=== PATIENT | female | born 1950 | race Caucasian/White ===

== ENCOUNTER → 2020-10-31 13:06 | Outpatient (CLI) | payer OTHER, SELFPAY ==
[2020-10-31 14:51] LABS: COVID19 -Nasal RAPID Negative (Negative)
== END ==
PROVIDERS: PCP Family Medicine; Visit Provider Nurse Practitioner
DX: Z20.822 Contact with and (suspected) exposure to COVID-19 (principal)
CPT/HCPCS: 87635

== ENCOUNTER 2020-11-02 10:38 | Inpatient (IN) | payer OTHER, SELFPAY ==
[2020-10-27 13:38] VITALS: BMI 36.8
[2020-11-02] VITALS (23 sets, daily range): BP systolic 122–157; BP diastolic 48–104; PULSE 58–80; RESP 8–19; TEMP 35.9–36.6; O2SAT 91–100; BMI 36.8
--- NOTE | 2020-11-02 06:00 | DI.RAD.S_ITS ---
PROCEDURE: XR SHOULDER RT MIN 2V INDICATIONS: post op TSA, right shoulder TECHNIQUE: Single frontal views of the shoulder were acquired. COMPARISON: [facility], XR SHOULDER MIN 2VW RT, 11/10/2015, 7:39. [facility], XR SHOULDER MIN 2VW RT, 07/27/2015, 10:30. FINDINGS: Bones: No fractures or dislocations. No suspicious bony lesions. Visualized ribs appear intact. Expected postoperative alignment after right total shoulder arthroplasty. Soft tissues: No suspicious soft tissue calcifications. IMPRESSION: Normal alignment after right total shoulder arthroplasty. Dictated by: Maxwell Bal M.D. on 11/02/2020 at 16:44 Approved by: Maxwell Bal M.D. on 11/02/2020 at 16:44
[2020-11-02] MEDS: ACETAMINOPHEN 325 MG TABLET 975 MG PO (11:19)
[2020-11-02] MEDS: CELECOXIB 200 MG CAPSULE PO (11:19)
[2020-11-02] MEDS: PREGABALIN 75 MG CAPSULE PO (11:19)
[2020-11-02] MEDS: LACTATED RINGERS 1,000 ML 42 ML IV ×2 (11:41→15:33)
--- NOTE | 2020-11-02 12:11 | PM.PREOP ---
Pre-operative Note COVID-19 COVID-19 status: Negative Result date/Date tested (Pos, Neg/Pending): 10/31/20 Interval Note History & Physical reviewed/Exam performed by Physician: Yes Changes to H&P: No
[2020-11-02] MEDS: CEFAZOLIN 2 GM/100 ML FROZ.PIGGY IV (13:20)
[2020-11-02] MEDS: TRANEXAMIC ACID 1,000 MG VIAL 2000 MG INJ ×2 (13:26→14:47)
--- NOTE | 2020-11-02 13:41 | SUR.OPER ---
Beach chair with Nik/Sparkle shoulder positioner. Lower body on padded OR bed. Head in foam padded head cradle, secured with straps. Non-operative arm secured <90 degrees abduction. Pillow under knees. Safety belt at thigh. Cloth tape over blanket over lower legs.
[2020-11-02] MEDS: BUPIVACAINE 0.25% W/ EPI (PF) 10 ML VIAL 20 ML INJ (13:56)
--- NOTE | 2020-11-02 15:21 | PM.OP.1 ---
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 She has had ongoing pain despite an arthroscopic procedure done at the [facility]. After extensive discussion the risks benefits and alternative she has agreed to reverse total shoulder replacement. Risks discussed included but were not limited to: Failure to improve, stiffness, infection, nerve damage, deep venous thrombosis, pulmonary embolism, stroke, myocardial infarction, permanent paralysis and . Surgeon: [facility] Operator: Dea Moser Click Yes if Unassisted: No Anesthesia Type: General, Peripheral nerve block and Local Operative Notes Findings: Severe collapse of the humeral head with excessive retroversion compared to the shaft. Closure Type: primary Specimen(s): none sent Prosthetic devices, grafts, tissues, transplants, or devices: Implants used in this procedure were manufactured by the [employer] and included a [employer] total shoulder system with a 24 mm modular base plate with a 30 mm central screw there were 4 peripheral locking screws measuring 5.5 mm diameter and 16, 16, 24 and 32 mm in length. The glenosphere was a 33/24 with a central locking screw. On the humeral side there was a size 5 135 degree stem with a 36+ 2 right suture cup and a 36 +6/33 humeral insert. Applied: implant(s) Estimated Blood Loss (mL): 200 Blood products transfused: none Procedure in detail: The patient was seen in the preoperative area where they identified the right shoulder as the operative site and this was marked with my initials. They received preoperative antibiotics and underwent the induction of an interscalene block. They were taken to the operating room and placed on the operating room table in a supine position with the underwent the induction of a general anesthetic. There were then repositioned in the ?beach chair? position using a dedicated positioner. All pressure points were well padded. The knees were slightly bent to prevent tension on the sciatic nerves. The right arm was prepared from the fingertips to the base of the neck with ChloraPrep in the usual fashion and draped through sterile drapes. An approximately 15 cm incision was created starting at the clavicle just above the coracoid and going to the deltoid insertion. The deltopectoral interval was used to access the shoulder taking the vein to the medial side. The vein was protected throughout the case, however was found to have been transected at the conclusion of the case. The upper 1 cm of the pectoralis major was released. The biceps tendon was absent. The subscapularis was released. It was quite tight and repair was not possible at the conclusion of the procedure. The shoulder was dislocated and a proximal humeral osteotomy performed using an intramedullary guide. A proximal humeral protector was then placed. Retractors were placed access the glenoid. The soft tissues were removed circumferentially around the glenoid with care being taken to protect the axillary nerve during this procedure. The guide was used to drill the guide hole in the center of the inferior glenoid. The Reamer was then used followed by the central drill for enlarging the hole. A 30 mm tap was used. The base plate was then screwed into position with excellent compression. The locking screws were placed peripherally. The peripheral Reamer was used and the final glenosphere applied. Stability of the glenosphere was confirmed prior to placement of the locking screw. The proximal humeral protector was removed. Cylindrical reamers were used to define the axis of the canal. Broaching was then performed beginning with a size 5 broach. This had a very tight fit and therefore we elected to implant a size 5 stem. The guide for the proximal metaphyseal reamer was then applied and the metaphysis was reamed appropriately. The trial metaphyseal portion of the body was then applied to the broach. Trial reductions were performed and the size of the cup was optimized. Stability was checked in maximal internal and external rotation and range of motion was checked to allow access to the top of the head, internal rotation to an excess of 50? in the ?scarecrow position? and the ability to reach the groin. The appropriate final prosthetic components were then opened. The humeral prosthetic was then impacted into position. The humeral cup was placed. The joint was relocated and irrigated. The axillary nerve wounds once again palpated and found to be intact. The deltopectoral interval was reapproximated with 0 Vicryl. Subcutaneous layer was closed with interrupted 3-0 Vicryl and skin with a running 3 0 V lock suture. Subcutaneous tissues were then infiltrated with 0.5% Marcaine for postoperative pain control. An Aquacel Ag dressing was applied and the patient's arm was placed in a sling. The patient was then transferred to the recovery room in good condition having tolerated the procedure well. Complications: none Post-operative Condition: stable Disposition: PACU Plan for aftercare: The patient will be allowed to do pendulum exercises and use her hand in front of her torso below shoulder level. She will be discharged likely tomorrow when pain control is satisfactory.
[2020-11-02] MEDS: fentaNYL 100 MCG/2 ML INJ IV ×4 (15:29→16:08)
[2020-11-02] MEDS: HYDROMORPHONE 2 MG INJ IV ×5 (15:30→16:09)
[2020-11-02] MEDS: OXYCODONE IR 5 MG TABLET PO ×3 (16:16→23:18)
[2020-11-02] MEDS: LACTATED RINGERS 1,000 ML 100 ML IV (17:55)
[2020-11-02] MEDS: ACETAMINOPHEN 325 MG TABLET 650 MG PO (22:01)
[2020-11-02] MEDS: PRAVASTATIN 20 MG TABLET 40 MG PO (22:02)
[2020-11-02] MEDS: ASPIRIN EC 81 MG TABLET PO (22:02)
[2020-11-02] MEDS: DOCUSATE 100 MG CAPSULE PO (22:02)
[2020-11-02] MEDS: hydrOXYzine pamoate 25 MG CAPSULE PO (23:18)
--- NOTE | 2020-11-02 23:50 | PC.NURSE ---
shift note- Pt arrived to room @ 1700 from PACU via bed. right shoulder aquacell CDI, ice pack to area. A/O x4, 97% 2L nc, PACU reported pt desated to upper 70's. 1999- Pt 94%to 97% RA. Up to BSC x3 for 300-400ml clear yellow urine. L wrist LR @ 100 running. Oxy 5mg Q-3hr for pain trending 4/10. Pt reports no numbness to right fingers or hand, radial p + wiggle hand and fingers and crocheting. Call light in reach.
[2020-11-03] VITALS: BP 148/102; PULSE 83; RESP 19; TEMP 36.2; O2SAT 91
[2020-11-03] MEDS: HYDROMORPHONE 0.5 MG INJ 0.2 MG IV (00:09)
[2020-11-03 00:14] VITALS: BP 144/86
--- NOTE | 2020-11-03 00:43 | PC.NURSE ---
patient seen and assessed at 2349. Is alert and oriented. Breath sounds CTA with RA sat of 91%. HRR with initial BP of 148/102 with recheck of 144/86. Denies nausea. BT hypoactive and abdomen is soft; denies flatus as yet. Was up at shift change to [facility] with 1 assist and voided 100cc; denies dysuria, frequency or urgency. Able to move self in bed but is limited due to right UE being in sling. Aquacel dressing to right shoulder is CDI. CMS is intact. Complained of 4/10 pain so was medicated with Oxycodone + Vistaril after which pain increased to 6/10 so then medicated with Dilaudid and is now asleep. Ice pack also applied to right shoulder. Wearing bilateral calf SCD's. Fall risk score is low.
[2020-11-03 04:00] VITALS: BP 145/69; PULSE 80; RESP 19; TEMP 36.4; O2SAT 92
[2020-11-03] MEDS: OXYCODONE IR 5 MG TABLET PO (04:09)
[2020-11-03] MEDS: LACTATED RINGERS 1,000 ML 100 ML IV (04:55)
[2020-11-03 06:03] LABS: Hematocrit 39.9 % (36-46)
[2020-11-03] MEDS: DOCUSATE 100 MG CAPSULE PO (07:45)
[2020-11-03] MEDS: ACETAMINOPHEN 325 MG TABLET 650 MG PO (07:45)
[2020-11-03] MEDS: ASPIRIN EC 81 MG TABLET PO (07:45)
[2020-11-03] MEDS: OXYCODONE IR 10 MG TABLET PO (07:46)
[2020-11-03] MEDS: LEVOTHYROXINE 125 MCG TABLET PO (07:46)
--- NOTE | 2020-11-03 07:54 | PM.DS.1 ---
History of Present Illness History of Present Illness Date Patient Seen: 11/03/20 Time Patient Seen: 07:54 Chief complaint: Right Total Shoulder Arthroplasty - Reverse Narrative: The history and physical is contained in the chart in a previously completed note. Please refer to that note for this information. Discharge Providers Provider Date of admission: 11/02/20 10:38 Discharge Date: 11/03/20 Primary care physician: Dileep Swanson MD Consults: 11/02/20 17:34 Consult to Discharge Planning Routine Comment: Consult to Physical Therapy Evaluate & Treat Comment: Physician Instructions: pendulums, can use hand in front of torso Discharge provider: Chano Marin MD Summary Hospital Course Discharge Diagnosis: 1. Right proximal humeral fracture malunion with avascular necrosis of the humeral head Hospital Course: Patient was admitted to the hospital and taken directly to the operating room on November 02, 2020 where she underwent a right reverse total shoulder arthroplasty without complications. On postoperative day 1 she was happy with her pain control and was anxious to go home. Status at Discharge Cognitive/behavioral status at discharge: oriented Functional status at discharge: independent ambulation Overall status at discharge: patient is progressing back to baseline Time Spent with Patient Time spent: Less than 30 minutes Exam Vital Signs (past 8 hours): - 11/03/20 00:00 11/03/20 00:14 11/03/20 04:00 Temperature 97.2 F L 97.5 F L Pulse Rate 83 80 Respiratory Rate 19 19 Blood Pressure 148/102 H 144/86 H 145/69 H Pulse Oximetry 91 92 Oxygen Delivery Method Room Air Oxygen Flow Rate 0 Narrative Exam Narrative: Right shoulder wound is dressed with no drainage on the bandage. Light touch is intact in the radial, ulnar, median, musculocutaneous and axillary nerve distributions. She can extend her thumb, abduct her thumb, abduct her fingers and can fire her biceps and deltoid. Objective Labs Result Diagrams: 11/03/20 05:28 Labs: Laboratory Results - last 24 hr 11/03/20 05:28 Hgb 13.0 Hct 39.9 PFSH Medical History (Updated 10/27/20 @ 14:17 by Connie Domingo RN) Fracture of right heel HLD (hyperlipidemia) Hypothyroid Osteoarthritis Right humeral fracture (2014) Surgical History (Updated 10/27/20 @ 14:17 by Connie Domingo RN) History of colon resection (~2005) History of hysterectomy Hx of appendectomy Hx of arthroscopy of shoulder Hx of neck surgery Social History household members: spouse Smoking Status: Former smoker alcohol intake: current Discharge Assessment & Plan Assessment and Plan Assessment: Stable postoperative day 1 status post reverse total shoulder replacement for proximal humeral malunion with AVN. Plan of Treatment: Discharge to home. Follow up at my office in 10-14 days. Discharge prescriptions for oxycodone have been sent to the pharmacy. She has been instructed on the use of aspirin for DVT prophylaxis in the use of Tylenol for additional pain control. Discharge Plan Discharge Plan Patient Disposition: Home Discharge orders & Medications Prescriptions: New aspirin 81 mg Tablet,Delayed Release (Dr/Ec) 81 mg PO BID 42 Days Qty: 84 RF: 0 oxycodone 5 mg Tablet 5 mg PO Q4H PRN (Reason: Pain, Moderate (4-6)) Qty: 40 RF: 0 Continued levothyroxine 125 mcg Tablet 125 mcg PO DAILY RF: 0 naproxen sodium [Aleve] 220 mg Capsule 440 mg PO DAILY PRN (Reason: Pain) RF: 0 pravastatin 40 mg Tablet 40 mg PO BEDTIME RF: 0 acetaminophen 500 mg Tablet 500 mg PO Q6H PRN (Reason: Pain (Scale Score 1-3)) RF: 0 Discontinued tramadol 50 mg Tablet 100 mg PO DAILY PRN (Reason: Pain) RF: 0 Follow up/Referrals: Chano Marin MD [Physician] - 2 Weeks Dileep Swanson MD [Primary Care Provider] - Discharge Health Status Multidrug resistant organism: No MDRO Diet/Activity/Treatments Diet: Diet as Tolerated and Regular Activity: You may use your right hand in front of your torso below shoulder level. Cold/Heat Therapy: You may apply ice to your right shoulder for 15 minutes every hour as needed for pain control. Skin/Wound/Dressing Care Report to your healthcare provider any signs of infection, such as:: chills, fever, night sweats, increased pain, unusual drainage and unusual redness Dressing: Leave the dressing intact until your postoperative follow-up. You may shower with your dressing in place. If the central strip of the dressing becomes saturated with either water or blood, please call the office to have it evaluated. Visit Report/Discharge Packet Instructions: DI for Prescription Opioid Use, DI for Shoulder Replacement Stand Alone Forms: Surgery Discharge Discharge Data Primary Care Provider: Dileep Swanson
[2020-11-03 08:00] VITALS: BP 130/72; PULSE 70; RESP 17; TEMP 36.8; O2SAT 92
--- NOTE | 2020-11-03 09:20 | PT.IIE ---
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) Unspecified fracture of upper end of right humerus, subsequent encounter for fracture with malunion (11/02/20) Surgery Performed Operation Date: 11/02/20 12:45 Actual Procedures p Total Shoulder Arthroplasty - Reverse(Right) - Chano Marin MD Surgical History (Last Updated 10/27/20 @ 14:17 by Connie Domingo, RN) History of colon resection (~2005) History of hysterectomy Hx of appendectomy Hx of arthroscopy of shoulder Hx of neck surgery Medical History (Last Updated 10/27/20 @ 14:17 by Connie Domingo RN) Fracture of right heel HLD (hyperlipidemia) Hypothyroid Osteoarthritis Right humeral fracture (2014) Physical Therapy Inpatient Evaluation/Re-Eval M1 PT/OT-IP Prior Functional Status Start: 11/03/20 11:35 Freq: NEEDED Status: Active Protocol: Document 11/03/20 09:20 AB (Rec: 11/03/20 11:49 AB [id number]) Medical Review Prior Functional Status Medical History Reviewed Yes Communication able to make needs known Mobility and Gait pt stated that she is indpendent with all mobilities and ambulation without AD Social History Household Members spouse Living Arrangements RV Number of Floors (Floors) One Floor Number of Stairs To Enter/Railing? 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 [employer] M2 PT-IP Current Condition Start: 11/03/20 11:35 Freq: NEEDED Status: Active Protocol: Document 11/03/20 09:20 AB (Rec: 11/03/20 11:49 AB [email or web address]) Physical Therapy Current Condition Current Condition Evaluation Date 11/03/20 Treatment Diagnosis s/p R reverse TSA; difficulty in walking Onset Date 11/02/2020 Precautions Shoulder Precautions Sling,PROM,Internal Rotation to Body,No External Rotation, No Abduction,Forward Flexion to 90 degrees,Pendulums Other Precautions per doctor's order: pt can use her hand in front of her torso below shoulder level M3 PT-IP Subjective Start: 11/03/20 11:35 Freq: NEEDED Status: Active Protocol: Document 11/03/20 09:20 AB (Rec: 11/03/20 11:49 AB [email or web address]) Subjective Physical Therapy Visit Type Type Initial Evaluation Visit Start Time 09:20 Visit Stop Time 10:01 Total Visit Minutes 41 Number of BACK LINE COOK Visits 0 Physical Therapy Visit Comments Patient Comments pt is agreeable to do PT Therapy Pain Assessment Pain When Pain Assessed At Rest Pain Present Pain Present Pain Reported Location R shoulder/chest Intensity 3 Scale Used Numeric (0 - 10) Pain Management Techniques Modification of Treatment,Re- positioning,Timing of Activity with Medications M4 PT-IP Mobility and Gait Start: 11/03/20 11:35 Freq: NEEDED Status: Active Protocol: Document 11/03/20 09:20 AB (Rec: 11/03/20 11:49 [email or web address]) PT-Bed Mobility Assessment Supine to Sit Supine to Sit Standby Assistance Sit to Supine Sit to Supine Standby Assistance PT-Transfer Assessment Sit to and From Stand Sit to and from Stand Independent Equipment Transfer Assistive Device None,Gait Belt Orthotic/Prosthetic Devices or Brace: Yes Transfers Transfer Destination Chair Transfer Technique ambulated without AD Transfer Ability Level of Assist Standby Assistance Comments Mobility Comments reviewed shoulder precautions with pt. pt stated that she has previous shoulder surgeries and is familiar with her precautions, sling management and exercises. stated that her spouse will be able to assist her and also knows how to manage her sling to assist her. pt completed supine to sit SBA . completed pendulum with cues. pt was able to dangle RUE but unable to fully relax RUE to do pendulum. educated pt on how to do UB dressing with said position. pt agreed and understood. pt also completed elbow, hand/wrist exercises. pt ambulated without AD to the toilet SBA. completing toileting without AD and ambulated to the sink SBA. was able to maintain standing without AD SBA while completing handwashing. agreed to ambulate in the hallway and completed ~ 100 ft without AD SBA. pt completed up/down steps using 1 rail SBA. ambulated back to the room without AD SBA. pt wanted to do pendulum exercise again and completed. continues to not be able to relax RLE. pt sat back on chair. Nurse came in to assist pt with dressing needs. Gait Assessment Gait Gait Assistance Required: Standby Assistance Distance (Feet) 100 Able to Maintain Weight Bearing Status Yes During Gait Assistive Devices Assistive Device None,Gait Belt Orthotic/Prosthetic Devices or Brace: Yes Gait Deviations General Gait Pattern Antalgic Factors Limiting Gait Function Factors Limiting Gait Function Decreased Activity Tolerance, Decreased Strength,Limited Range of Motion,Pain,Poor Balance Comments Gait Comments completed ambulated without AD 100 ft x 2 SBA. Stair Climbing Assessment Evaluation Level of Assist On Stairs Standby Assistance Devices Stair Climbing Assistive Devices Left Railing,Right Railing Technique/Endurance Stair Climbing Direction Ascend and Descend Stair Climbing Technique Step to Step Number of Steps Climbed 3 Query Text: Stair Climbing Set # Repetitions (reps) 2 Comments Stair Climbing Comments used L rail ascending and descending SBA PT-Balance Assessment Sitting Balance and Reactions Static Sitting Balance Ability Normal Dynamic Sitting Balance Ability Good Standing Balance and Reactions Static Standing Balance Ability Good Dynamic Standing Balance Ability Fair Device Used without AD M5 PT-IP Objective Assessments Start: 11/03/20 11:35 Freq: NEEDED Status: Active Protocol: Document 11/03/20 09:20 AB (Rec: 11/03/20 11:49 AB [id number]) Orientation Orientation/Cognition Level of Alertness Alert Orientation Name,Place,Situation Language Function Ability No Deficits Noted Safety Awareness Understands Safety Issues Memory Description No Deficits Noted Gross Range of Motion Lower Extremity ROM Assessment Within Functional Limits Strength Lower Extremity Strength Assessment Within Functional Limits Sensation Assessment Sensation Gross Sensation WNL Muscle Tone Muscle Tone WNL Yes M6 PT-IP Treatment Start: 11/03/20 11:35 Freq: NEEDED Status: Active Protocol: Document 11/03/20 09:20 AB (Rec: 11/03/20 11:49 AB [email or web address]) Physical Therapy Treatment Education Education Provided Precautions,Weight Bearing Status,Post-Op Packet,Safety M7 PT-IP Assessment and Plan Start: 11/03/20 11:35 Freq: NEEDED Status: Active Protocol: Document 11/03/20 09:20 AB (Rec: 11/03/20 11:49 AB [email or web address]) PT Summary Assessment and Plan Potential Rehabilitation Potential Good Status of Condition at Evaluation Stable Summary Impairments Pain,ROM,Strength,Balance,Bed Mobility,Transfers,Gait, Activity Tolerance Assessment Summary pt requiring SBA with mobility and will have her spouse to assist her at home. pt may go home when medically stable. Goals Bed Mobility Goal Independent Transfer Goal Independent Gait Goal Independent Gait Distance 200 Other Goals up/down 5 steps 1 rail mod I Days to Meet Goals 3 Frequency of Treatment Frequency Of Treatment Twice a Day Treatment Plan Physical Therapy Treatment Plan Bed Mobility Training,Transfer Training,Gait Training, Therapeutic Exercise,Balance Retraining,Post Op Education, Discharge Planning,Hot or Cold Pack,Neuromuscular Re-ed, Coordination Retraining,Manual Therapy Recommendations To Nursing Amount of Assist Needed Standby Assistance Discharge Recommendations PT Discharge Recommendations Home with Assistance, Outpatient PT Transportation Needs at Discharge Private Vehicle
--- NOTE | 2020-11-03 09:44 | PC.NURSE ---
Addendum entered by Veronika Arrieta R.N. 11/03/20 12:06: CLEARED BY PHYSICAL THERAPY FOR DISCHARGE, THIS ADJUNCT ENGLISH INSTRUCTOR ASSISTED PATIENT TO DRESS, SLING IN PLACE, REVIEWED ALL DC HOME INSTRUCTIONS WITH PATIENT, INCLUDING DISCUSSING HER ELECTRONICALLY SENT SCRIPTS TO HER PHARMACY. PATIENT CONFIRMS UNDERSTANDING OF ALL INSTRUCTIONS. SPOUSE ARRIVED TO PICK PATIENT UP. PATIENT LEFT BY WC W/ MANAGER RETIREMENT ESCORT WITH ALL BELONGINGS AND PAPERWORK WITHOUT SIGNS OR SYMPTOMS OF DISTRESS. Original Note: DISCHARGE: PHYSICAL THERAPY IN WITH PATIENT AT THIS TIME. DRSG CDI, EXTENSIVE PURPLE BRUISING TO RIGHT UPPER INNER ARM AT AXILLA EXTENDING DOWN TOWARDS ANTICUBITAL SPACE. CMS INTACT, DENIES NUMBNESS OR TINGLING.
== END 2020-11-03 12:08 | disposition home or self-care (01) | DRG 483 ==
PROVIDERS: Admitting Provider Orthopaedic Surgery; PCP Family Medicine; Referring Provider Orthopaedic Surgery; Visit Provider Orthopaedic Surgery
PROC: 0RRJ00Z Replacement of Right Shoulder Joint with Reverse Ball and Socket Synthetic Substitute, Open Approach (ICD-10-PCS; CPT 23472; principal; 2020-11-02 12:45)
DX: S42.201P Unspecified fracture of upper end of right humerus, subsequent encounter for fracture with malunion (principal); M87.021 Idiopathic aseptic necrosis of right humerus; Z20.822 Contact with and (suspected) exposure to COVID-19; I87.2 Venous insufficiency (chronic) (peripheral); E03.9 Hypothyroidism, unspecified; X58.XXXA Exposure to other specified factors, initial encounter
CPT/HCPCS: 36415; 73020; 85014; 85018; 87635; 97110; 97161; C1776; J0330; J0690; J1100; J1170; J2405; J2704; J3010